=== PATIENT | female | born 1935 | race Caucasian/White ===

== ENCOUNTER → 2016-08-10 | Outpatient (CLI) | payer MEDICARE, BC ==
[2016-08-10 12:56] LABS: AUTOMATED NEUTROPHIL # 2.6 TH/MM3 (1.8-7.7); BASOPHIL % 0.7 % (0.0-2.0); EOSINOPHIL # 0.1 TH/MM3 (0-0.4); HEMATOCRIT 41.6 % (35.0-46.0); HEMO FLAGS DIFF FINAL; LYMPH % 39.7 % (9.0-44.0); LYMPHOCYTE # 2.2 TH/MM3 (1.0-4.8); MEAN CELL VOLUME 92.4 FL (80.0-100.0); MEAN CORPUSCULAR HEMOGLOBIN 30.6 PG (27.0-34.0); MEAN CORPUSCULAR HGB CONC 33.1 % (32.0-36.0); MONO % 12.4 % (0.0-8.0); NEUT % 46.2 % (16.0-70.0); PLATELET COUNT 186 TH/MM3 (150-450); RED BLOOD COUNT 4.51 MIL/MM3 (4.00-5.30); RED CELL DISTRIBUTION WIDTH 14.1 % (11.6-17.2); WHITE BLOOD COUNT 5.6 TH/MM3 (4.0-11.0)
[2016-08-10 13:42] LABS: ALKALINE PHOSPHATASE 147 U/L (45-117); ALT (GPT) 18 U/L (10-53); ANION GAP 9 MEQ/L (5-15); AST (GOT) 15 U/L (15-37); BICARBONATE 29.3 MEQ/L (21.0-32.0); BLOOD UREA NITROGEN 16 MG/DL (7-18); CHLORIDE 102 MEQ/L (98-107); GLOMERULAR FILTRATION RATE 53 ML/MIN (>89); GLUCOSE,FASTING 82 MG/DL (74-99); HDL CHOLESTEROL 60.3 MG/DL (40.0-60.0); LDL CHOLESTEROL 131 MG/DL (0-99); POTASSIUM 3.7 MEQ/L (3.5-5.1); SODIUM (NA) 140 MEQ/L (136-145); TOTAL BILIRUBIN ADULT 0.4 MG/DL (0.2-1.0)
== END ==
LOC: PLAB 08:15
PROVIDERS: ATTEND Family Medicine
DX: E03.9 Hypothyroidism, unspecified (principal); N18.3 Chronic kidney disease, stage 3 (moderate); E78.2 Mixed hyperlipidemia
CPT/HCPCS: 36415; 80053; 80061; 84443; 85025

== ENCOUNTER → 2017-02-08 | Outpatient (CLI) | payer MEDICARE, BC ==
[2017-02-08 13:38] LABS: AUTOMATED NEUTROPHIL # 2.4 TH/MM3 (1.8-7.7); BASOPHIL % 0.5 % (0.0-2.0); EOSINOPHIL # 0.1 TH/MM3 (0-0.4); EOSINOPHIL % 1.2 % (0.0-4.0); HEMATOCRIT 40.3 % (35.0-46.0); HEMO FLAGS DIFF FINAL; LYMPH % 38.3 % (9.0-44.0); LYMPHOCYTE # 1.9 TH/MM3 (1.0-4.8); MEAN CELL VOLUME 91.4 FL (80.0-100.0); MEAN CORPUSCULAR HEMOGLOBIN 30.9 PG (27.0-34.0); MEAN CORPUSCULAR HGB CONC 33.8 % (32.0-36.0); MONO % 11.9 % (0.0-8.0); NEUT % 48.1 % (16.0-70.0); PLATELET COUNT 165 TH/MM3 (150-450); RED BLOOD COUNT 4.41 MIL/MM3 (4.00-5.30); RED CELL DISTRIBUTION WIDTH 13.9 % (11.6-17.2)
[2017-02-08 14:11] LABS: ANION GAP 8 MEQ/L (5-15); AST (GOT) 15 U/L (15-37); BICARBONATE 28.8 MEQ/L (21.0-32.0); BLOOD UREA NITROGEN 15 MG/DL (7-18); CHLORIDE 102 MEQ/L (98-107); GLOMERULAR FILTRATION RATE 56 ML/MIN (>89); GLUCOSE,FASTING 89 MG/DL (74-99); POTASSIUM 3.8 MEQ/L (3.5-5.1); SODIUM (NA) 139 MEQ/L (136-145)
[2017-02-08 14:21] LABS: ALKALINE PHOSPHATASE 154 U/L (45-117); ALT (GPT) 19 U/L (10-53); HDL CHOLESTEROL 47.4 MG/DL (40.0-60.0); LDL CHOLESTEROL 134 MG/DL (0-99); TOTAL BILIRUBIN ADULT 0.3 MG/DL (0.2-1.0)
== END ==
LOC: PLAB 07:58
PROVIDERS: ATTEND Family Medicine
DX: E78.2 Mixed hyperlipidemia (principal); I10 Essential (primary) hypertension; K21.9 Gastro-esophageal reflux disease without esophagitis; E30.9 Disorder of puberty, unspecified
CPT/HCPCS: 36415; 80053; 80061; 84443; 85025

== ENCOUNTER → 2017-02-16 | Outpatient (CLI) | payer MEDICARE, BC | LOC: PLAB 09:33 | PROVIDERS: ATTEND Family Medicine | DX: M62.81 Muscle weakness (generalized) (principal); E03.9 Hypothyroidism, unspecified | CPT/HCPCS: 36415 ==

== ENCOUNTER → 2017-08-03 | Outpatient (CLI) | payer MEDICARE, BC ==
[2017-08-03 10:20] LABS: AUTOMATED NEUTROPHIL # 3.4 TH/MM3 (1.8-7.7); BASOPHIL % 0.5 % (0.0-2.0); EOSINOPHIL # 0.1 TH/MM3 (0-0.4); EOSINOPHIL % 1.2 % (0.0-4.0); HEMATOCRIT 40.8 % (35.0-46.0); HEMO FLAGS DIFF FINAL; HEMOGLOBIN 13.6 GM/DL (11.6-15.3); LYMPH % 31.6 % (9.0-44.0); LYMPHOCYTE # 1.9 TH/MM3 (1.0-4.8); MEAN CELL VOLUME 91.5 FL (80.0-100.0); MEAN CORPUSCULAR HEMOGLOBIN 30.4 PG (27.0-34.0); MEAN CORPUSCULAR HGB CONC 33.2 % (32.0-36.0); MONO % 10.7 % (0.0-8.0); MONOCYTE # 0.6 TH/MM3 (0-0.9); PLATELET COUNT 192 TH/MM3 (150-450); RED BLOOD COUNT 4.46 MIL/MM3 (4.00-5.30); RED CELL DISTRIBUTION WIDTH 13.6 % (11.6-17.2)
[2017-08-03 10:28] LABS: PROTHROMBIN TIME - PATIENT 10.6 SEC (9.8-11.6)
[2017-08-03 10:40] LABS: BILIRUBIN, URINE NEG (NEG); BLOOD, URINE NEG (NEG); COMMENT (UR) CATH-CULT NOT IND; CULTURE IF INDICATED CATH CULTURE NOT IND; GLUCOSE,URINE NEG (NEG); KETONE, URINE NEG (NEG); NITRITE,URINE NEG (NEG); SQUAMOUS EPITHELIAL CELL URINE <1 /hpf (0-5); URINE COLOR LIGHT-YELLOW (YELLW/STRAW); URINE LEUKOCYTE ESTERASE MOD (NEG)
[2017-08-03 10:52] LABS: ANION GAP 6 MEQ/L (5-15); BICARBONATE 29.5 MEQ/L (21.0-32.0); BLOOD UREA NITROGEN 14 MG/DL (7-18); CHLORIDE 101 MEQ/L (98-107); CREATININE 0.87 MG/DL (0.50-1.00); GLOMERULAR FILTRATION RATE 62 ML/MIN (>89); GLUCOSE,FASTING 77 MG/DL (74-99); POTASSIUM 3.8 MEQ/L (3.5-5.1); SODIUM (NA) 136 MEQ/L (136-145)
== END ==
LOC: CPRE 09:13
DX: Z01.810 Encounter for preprocedural cardiovascular examination (principal); Z01.812 Encounter for preprocedural laboratory examination; Z01.818 Encounter for other preprocedural examination; M19.012 Primary osteoarthritis, left shoulder
CPT/HCPCS: 36415; 71046; 80048; 81001; 85025; 85610; 93005

== ENCOUNTER 2017-08-15 07:41 | Inpatient (IN) | payer MEDICARE, BC ==
--- NOTE | 2017-08-07 17:55 | MH ---
cc: JESSICA COREA DATE OF ADMISSION 08/15/2017 ADMISSION DIAGNOSIS Osteoarthritis of the left shoulder, partial-thickness rotator cuff tear left shoulder, pain left shoulder. HISTORY OF THE PRESENT ILLNESS The patient is an 82-year-old white female who has experienced pain of her left shoulder of almost 4 years duration. 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 As he became progressively more incapacitated with progression of his disease the patient's responsibilities became more involved especially with lifting activities for which she suspects she may have stressed the shoulder area. She did not seek any evaluation or treatment during that interval of time and with her son having , she began to note progressive pain about the shoulder area for which she was having difficulty regarding her daily routine especially as related to any reaching in an overhead orientation. She had been taking Aleve on a p.r.n. basis for pain management. She presented to the undersigned physician in February of 2016 and at that time her x-ray studies revealed obvious degenerative changes of the glenohumeral joint with pronounced osteophyte versus loose body about the inferior margin of the humeral head. Findings and treatment options were reviewed with the patient at that time. Initially the patient was not desirous of considering any form of operative intervention and elected to continue with conservative management. She returned to the office in April of 2017 and at that time described lingering soreness about the shoulder area with limited mobility that had influenced all activities of daily living. She had received a previous injection to the shoulder area that did afford her some benefit and expressed her desire to receive similar treatment for which she did undergo a repeat injection for further management. Unfortunately her symptoms persisted and she became progressively more incapacitated with the passage of time. She subsequently underwent a CT scan with contrast of the left shoulder the results of which identified severe glenohumeral joint arthrosis with a diffuse full-thickness articular cartilage thinning, as well as a longitudinal partial-thickness articular surface tear of the distal infraspinatus tendon but no full-thickness rotator cuff tear being identified. There was severe subacromial, subdeltoid bursitis. The patient returned to the office in follow-up disposition and at that time her options were reviewed once again the pros and cons of continuing with conservative management versus operative intervention that would involve a reverse shoulder arthroplasty were outlined. Emphasis was made regarding the fact that the decision to proceed with surgery would be left entirely to the patient's discretion. The patient felt that her symptoms had progressed to that point in time where she was ready to proceed accordingly and in compliance with her wishes she was scheduled for admission in order that the above be accomplished. She is right-hand dominant. PAST MEDICAL HISTORY Her past medical history, hospitalizations and surgeries have included: 1. Tonsillectomy. 2. Appendectomy. 3. Repair of a prolapsed uterus. 4. Bladder repair with total abdominal hysterectomy. Arthroscopic surgery of the left knee. 5. Complete mastectomy of the left breast. 6. Cataract excision bilaterally. 7. And colonoscopy. 8. The patient has also been evaluated in the past for thyroid disease and was later diagnosed as having TMJ disorder. Her medical illnesses include: 1. Hypothyroidism. 2. Elevated cholesterol. 3. Hypertension. 4. Acid reflux. MEDICATIONS Her current medications: 1. Butisol sodium 30 milligrams daily. 2. Levothyroxine 75 mcg daily. 3. Simvastatin 20 mg daily. 4. Metoprolol 50 mg daily. 5. Losartan 100 mg daily. 6. Proventil inhaler 110 mcg 2 puffs twice a day. 7. Tagamet 150 mg twice daily. 8. Advil 200 mg four times a day. 9. Ocuvite Lutein once a day. 10. Vitamin B12 1000 mg daily. 11. Potassium 99 mg twice daily. 12. Magnesium 500 mg twice daily. ALLERGIES The patient denies any known drug allergies. REVIEW OF SYSTEMS She wears glasses. Has a history of headaches and occasional dizziness. No syncope. No sinus congestion or epistaxis. Auditory acuity intact. No tinnitus. No bleeding gums or dysphagia. Denies cough, shortness of breath, upper respiratory infection, pneumonia or tuberculosis. No angina. She is medically managed for hypertension. Her appetite is good. Bowel movements are regular. No hepatitis, gallbladder disease or ulcers. There is a positive history of hemorrhoids. She has had previous urinary tract infection. No kidney stones. No fractures. No psychiatric illness. Her remaining review of systems is unremarkable and noncontributory. FAMILY HISTORY The patient has been 61 years. Her is 84 years of age, he is in reasonably good health having undergone previous cardiac valve replacement. One son at 57 years of age secondary to lung cancer. One daughter in good health. Family history is positive for hypertension, heart disease, COPD, breast and lung cancer. SOCIAL HISTORY The patient completed a high school education with additional college credits. 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 Denies active use of tobacco and ethanol. PHYSICAL EXAMINATION Height 5 feet 4 inches, weight 151 pounds. GENERAL: An alert, oriented and responsive 82-year-old white female who sits quietly upon examination table with no obvious distress. HEENT: Head, ears, eyes, nose and throat, pupils were equally round and reactive to light. Extraocular movements full. Sclerae clear. External nares clear. External auditory canals clear. Dental intact with dental implant in place in the mandibular region for history of TMJ. Mucous membranes pink and moist. Pharynx clear. NECK: Supple. There is mild discomfort at the extremes of motion indicated to be chronic in nature. Carotid pulse palpable bilaterally. Trachea midline. Thyroid without enlargement. LUNGS: Clear to auscultation and percussion. No CVA tenderness. No discomfort throughout the dorsal lumbar spine. HEART: Regular rhythm. No murmur or gallop. ABDOMEN: Soft. Nontender. Bowel sounds present. PELVIC: Per primary care physician. EXTREMITIES: Left shoulder there is mild tenderness elicited about the anterior aspect of the left shoulder without palpable deformity. The patient demonstrates obvious difficulty and limitations in her attempt to actively elevate her left hand above her head level. Internal rotation is limited to the posterior waist level, abduction to no more than 30-45 degrees. Cross-arm positioning of left hand onto right shoulder is limited. Subtle suggestion for crepitation about the glenohumeral joint. Drop arm test minimally positive. Hagan sign positive. Mild weakness of both internal and external rotation. Fisher Spear strength intact. Sensory intact. NEUROLOGIC: Cranial nerves II-XII grossly intact. IMPRESSION Osteoarthritis left shoulder, partial-thickness rotator cuff tear left shoulder, pain left shoulder. PLAN Left reverse shoulder arthroplasty. The nature of the planned surgical procedure, the potential complications and risks associated, the expectations of surgery and the consent form were thoroughly reviewed with the patient in the presence of her prior to admission to the hospital. Camilla has indicated her full understanding regarding all of the above and given consent to proceed with treatment as outlined. Medical evaluation and clearance for surgery will be completed by her primary care physician Dr. Sosa Camilo. MD COLLEEN Austin/KK /4:49 PM /5:13 PM
[~2017-08-15] VITALS: Ht 162.6 cm; Wt 63.6 kg
[~2017-08-15 07:41] MED LIST: CIME200T23 PO; FLUTI110I INH; IBUP200C PO; LEVO75TA3 PO; LOSA100T PO; MAGN400T3 PO; METO1TAB9 PO; OCUVTAB PO; POTA99TA4 PO; SIMV20TA PO; VITA500T35 PO; [UNRECOGNIZED DRUG - CODE] PO
[2017-08-15] MEDS ORDERED: METOPROLOL TARTRATE 25 MG TAB PO PRN (08:30)
[2017-08-15] MEDS ORDERED: POVIDONE IODINE 7.5% SCRUB 118 ML BOTTLE TOPICAL SCH (08:30)
[2017-08-15] MEDS ORDERED: LACTATED RINGER'S 1000 ML IV PRN (08:30)
[2017-08-15] MEDS ORDERED: CHLORHEXIDINE GLUCONATE 2 % 1 PACK (2 CLOTHS) TOPICAL PRN (08:30)
[2017-08-15] MEDS ORDERED: SODIUM CHLORID 0.9% 500 ML IV PRN (08:30)
[2017-08-15] MEDS ORDERED: POVIDONE IODINE 5% (ANTISEPSIS KIT) 4 APPLICATIONS EACH NARE PRN (08:30)
[2017-08-15] MEDS ORDERED: ceFAZolin 2 GM PREMIX 50 ML IV SCH (08:30)
[2017-08-15] MEDS ORDERED: TRANEXAMIC ACID 1 GM PRIOR TO PROCEDURE IV SCH ×2 (09:00)
[2017-08-15] MEDS ORDERED: ceFAZolin INJ 1,000 MG VIAL ONE (10:28)
[2017-08-15] MEDS ORDERED: ACETAMINOPHEN 1000 MG/100 ML 100 ML IV ONE (10:34)
[2017-08-15] MEDS ORDERED: FAMOTIDINE 20 MG/2 ML VIAL ONE (10:35)
[2017-08-15] MEDS ORDERED: MIDAZOLAM HCL 2 MG/2 ML VIAL ONE (10:35)
[2017-08-15] MEDS ORDERED: TRANEXAMIC ACID 1 GM POST-OP IV SCH ×2 (12:00)
[2017-08-15] MEDS ORDERED: DO NOT ADM ANY ANTICOAGULANT DRUGS PRN (13:31)
[2017-08-15] MEDS ORDERED: *morphine SULFATE 4 MG/ML PERIprocedure ONLY ONE (13:41)
[2017-08-15] MEDS ORDERED: ACETAMINOPHEN/HYDROcodone 325 MG/5 MG TAB PO PRN (13:45)
[2017-08-15] MEDS ORDERED: MISCELLANEOUS PHARMACY INFORMATION XX ONE (13:45)
[2017-08-15] MEDS ORDERED: ONDANSETRON HCL 4 MG/2 ML VIAL IVP PRN (13:45)
[2017-08-15] MEDS ORDERED: NALOXONE HCL 0.4 MG/ML AMP IV PUSH PRN (13:45)
[2017-08-15] MEDS ORDERED: Post-op Orders (for Pharmacy) XX ONE (13:45)
[2017-08-15] MEDS ORDERED: TRANEXAMIC ACID INJ 1,000 MG in SODIUM CHLORIDE 0.9% INJ 100 ML IV SCH (13:45)
[2017-08-15] MEDS ORDERED: ACETAMINOPHEN 325 MG TAB PO PRN (13:45)
[2017-08-15] MEDS ORDERED: BISACODYL 10 MG SUPP RECTAL PRN (13:45)
[2017-08-15] MEDS ORDERED: ZOLPIDEM TARTRATE 5 MG TAB PO PRN (13:45)
[2017-08-15] MEDS ORDERED: BUPIVACAINE HCL PF 0.5% 30 ML VIAL ONE (13:53)
[2017-08-15] MEDS: DEXT 5%-NACL 0.45% 1000 ML INJ 1,000 ML IV SCH ×2 (14:30→23:23)
[2017-08-15] MEDS ORDERED: MORPHINE SULFATE 30 MG/30 ML PCA IV SCH (14:30)
[2017-08-15] MEDS: PCA - TOTAL MG MORPHINE DELIVERED PER SHIFT SCH ×2 (14:30→22:00)
[2017-08-15 16:00] VITALS: BP 142/82; PULSE 89; RESP 18; TEMP 96.6; O2SAT 97
--- NOTE | 2017-08-15 16:23 | RADRPT ---
EXAM DATE/TIME: 08/15/2017 15:53 [facility] COMPARISON: No previous studies available for comparison. INDICATIONS : Post op left shoulder surgery. MEDICAL HISTORY : None. SURGICAL HISTORY : None. ENCOUNTER: Initial ACUITY: 1 day PAIN SCORE: 0/10 LOCATION: Left Shoulder. FINDINGS: There is a shoulder prosthesis in place which appears to be well-seated. Air is noted postoperatively in the soft tissues. CONCLUSION: Shoulder prosthesis well seated Jasson Golden MD on August 15, 2017 at 16:20 Board Certified Radiologist. This report was verified electronically.
--- NOTE | 2017-08-15 17:23 | PD.CONS ---
[facility] Request[facility] By Dr. ramirez from orthopedics service Reason for Consult Medical management Primary Care Physician Sosa Camilo MD Diagnoses: History of Present Illness Patient is a very pleasant feisty 82-year-old female right handed who was been complaining of pain over the left shoulder for the past 2 years now on and off. In the past had received a steroid shots with help but lately has been increasing pain with limitation in range of motion which prompted this elective surgery. Patient states history of hypertension hyperlipidemia history of breast cancer. Hyper reactive airway disease. Patient currently seen postop in the room denies any pain very motivated and looking forward to the worst 2 more physical therapy. Review of Systems Constitutional: DENIES: Fever, Weight loss, Chills, Change in appetite Eyes: DENIES: Blurred vision, Double Vision Ears, nose, mouth, throat: DENIES: Tinnitus, Ear Pain, Epistaxis, Odynophagia Respiratory: DENIES: Cough, Hemoptysis, Sputum production, Shortness of breath Cardiovascular: DENIES: Chest pain, Palpitations, Dyspnea on Exertion, Lower Extremity Edema, Orthopnea Gastrointestinal: DENIES: Black stools, Bloody stools, Difficulty Swallowing, Anorexia Genitourinary: DENIES: Urgency, Hematuria, Vaginal discharge Musculoskeletal: DENIES: Joint pain, Stiffness Integumentary: DENIES: Pruritus Hematologic/lymphatic: DENIES: Bruising Immunologic/allergic: DENIES: Urticaria Neurologic: DENIES: Headache, Speech Problems, Tremor Psychiatric: DENIES: Suicidal Ideation, Homicidal Ideation Past Family Social History Allergies: Coded Allergies: No Known Allergies (Unverified , 08/03/17) Past Medical History Hypertension Hyperlipidemia Peptic ulcer disease Hypothyroidism History of breast cancer status post left radical mastectomy Past Surgical History Left radical mastectomy for breast cancer Knee surgery in 1983 History of bladder repair Reported Medications As outpatient Simvastatin Toprol Losartan Potassium Flovent Magnesium Tagamet Synthroid Multivitamins Active Ordered Medications See EMR Family History Noncontributory Social History Denies smoking or alcohol use Physical Exam Vital Signs Vital Signs Date Time Temp Pulse Resp B/P (MAP) Pulse Ox O2 Delivery O2 Flow Rate FiO2 08/15/17 16:07 Nasal Cannula 2.00 08/15/17 15:00 97.8 78 18 169/92 (117) 96 Nasal Cannula 2 08/15/17 14:58 17 08/15/17 14:45 79 18 162/86 (111) 96 Nasal Cannula 2 08/15/17 14:30 84 18 158/99 (118) 96 Nasal Cannula 2 08/15/17 14:15 81 16 165/79 (107) 96 Nasal Cannula 2 08/15/17 14:00 77 16 184/90 (121) 96 Nasal Cannula 2 08/15/17 13:45 70 16 158/78 (104) 95 Nasal Cannula 3 08/15/17 13:35 97.6 72 16 172/80 (110) 95 Nasal Cannula 3 08/15/17 08:28 98.3 88 18 172/90 (117) 96 Physical Exam GENERAL: This is a well-nourished, well-developed patient, in no apparent distress. Awake alert not in distress very feisty and interactive SKIN: No rashes, ecchymoses or lesions. Cool and dry. HEAD: Atraumatic. Normocephalic. No temporal or scalp tenderness. EYES: Pupils equal round and reactive. Extraocular motions intact. No scleral icterus. No injection or drainage. ENT: Nose without bleeding, purulent drainage or septal hematoma. Throat without erythema, tonsillar hypertrophy or exudate. Uvula midline. Airway patent. NECK: Trachea midline. Supple, nontender, no meningeal signs. CARDIOVASCULAR: Regular rate and rhythm without murmurs, gallops, or rubs. RESPIRATORY: Clear to auscultation. Breath sounds equal bilaterally. No wheezes , rales, or rhonchi. GASTROINTESTINAL: Abdomen soft, non-tender, No guarding. MUSCULOSKELETAL: Left shoulder with postop dressing in place good radial pulses NEUROLOGICAL: Awake and alert. Cranial nerves II through XII intact. Motor and sensory grossly within normal limits. Five out of 5 muscle strength in all muscle groups. Normal speech. Imaging Last Impressions Shoulder X-Ray 08/15/17 0000 Signed Impressions: Service Date/Time: Tuesday, August 15, 2017 15:53 - CONCLUSION: Shoulder prosthesis well seated Jasson Golden MD Assessment and Plan Assessment and Plan 82-year-old female Status post left shoulder arthroplasty Orthopedic service is following PT consult. When necessary pain meds History of hypertension continue on metoprolol and losartan History of hyperlipidemia. Simvastatin History of cyst hyperreactive airway disease continue on Flovent History of GERD. Continue on Tagamet twice a day- not available- change to zantac 150 bid History of hypothyroidism continue on Synthroid Encourage up in ambulation. Patient started on Xarelto. For DVT prophylaxis Thank you for this consult we'll follow patient in-house with you Velvet Miller MD Aug 15, 2017 17:23
[2017-08-15] MEDS ORDERED: [UNRECOGNIZED DRUG - OTHER] PO PRN (18:00)
[2017-08-15 20:05] VITALS: BP 138/98; PULSE 93; RESP 18; TEMP 96; O2SAT 97
[2017-08-15] MEDS: PRAVASTATIN SOD 40 MG TAB PO SCH (21:07)
[2017-08-15] MEDS: FLUTICASONE PROPIONATE 110 MCG/ACT 12 GM INHALER INH SCH (21:07)
[2017-08-16 00:05] VITALS: BP 136/77; PULSE 102; RESP 17; TEMP 98; O2SAT 97
[2017-08-16 04:05] VITALS: BP 133/68; PULSE 95; RESP 17; TEMP 98; O2SAT 98
[2017-08-16] MEDS: LEVOTHYROXINE SODIUM 75 MCG TAB PO SCH (05:44)
[2017-08-16] MEDS: PCA - TOTAL MG MORPHINE DELIVERED PER SHIFT SCH ×3 (05:44→22:00)
[2017-08-16] MEDS: DEXT 5%-NACL 0.45% 1000 ML INJ 1,000 ML IV SCH ×3 (06:00→22:00)
[2017-08-16] MEDS ORDERED: HYDR-3516 PO (06:22)
[2017-08-16] MEDS ORDERED: ASPI-183 PO (06:22)
--- NOTE | 2017-08-16 06:26 | HHI.FF ---
Face to Face Verification Diagnosis: (1) DJD of left shoulder Occupational Therapy Left UE Weight Bearing: WB as tolerated Left UE Range of Motion: Active ROM Additional Instructions no external rotation > 45 degrees for initial 6 weeks post-op then progress as tolerated; follow standard TSA protocol Nursing Dressing Changes: Daily dressing change I have seen patient Camilla Cheema on 08/16/17. My clinical findings support the need for the requested home health care services because: Limited ability to care for self High risk of falls I certify that my clinical findings support that this patient is homebound because: Post-op weakness Unsteady gait/balance Unsafe to leave home unassisted Sam Garzon MD Aug 16, 2017 06:26
[2017-08-16] MEDS: FAMOTIDINE 20 MG TAB PO SCH ×2 (06:36→18:17)
[2017-08-16 07:39] LABS: HEMATOCRIT 33.6 % (35.0-46.0); HEMOGLOBIN 11.4 GM/DL (11.6-15.3)
[2017-08-16 08:00] VITALS: BP 140/71; PULSE 87; RESP 17; TEMP 98.7; O2SAT 95
[2017-08-16] MEDS ORDERED: FAMOTIDINE 20 MG TAB PO SCH (09:00)
[2017-08-16] MEDS ORDERED: POTASSIUM PO SCH (09:00)
[2017-08-16] MEDS: CYANOCOBALAMIN 1,000 MCG TAB PO SCH (09:26)
[2017-08-16] MEDS: METOPROLOL SUCCINATE 50 MG EXTENDED RELEASE TAB PO SCH (09:26)
[2017-08-16] MEDS: LOSARTAN 50 MG TAB PO SCH (09:26)
[2017-08-16] MEDS: MULTIVITAMIN-OPHTHALMIC 1 TAB PO SCH (09:26)
[2017-08-16] MEDS: FLUTICASONE PROPIONATE 110 MCG/ACT 12 GM INHALER INH SCH ×2 (09:27→20:11)
[2017-08-16] MEDS: MAGNESIUM OXIDE 400 MG TAB PO SCH (09:27)
--- NOTE | 2017-08-16 10:34 | MP ---
cc: JESSICA GARZON DATE OF SURGERY 08/15/2017 PREOPERATIVE DIAGNOSIS Severe osteoarthritis of the left shoulder with partial thickness rotator cuff tear and pain of the left shoulder POSTOPERATIVE DIAGNOSIS Severe osteoarthritis of the left shoulder with partial thickness rotator cuff tear and pain of the left shoulder PROCEDURE Left reversed shoulder arthroplasty. SURGEON Jessica Garzon MD ANESTHESIA General endotracheal INDICATIONS This is an 82-year-old white female with left shoulder pain of almost four years duration. 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 As he became progressively more incapacitated with his disease, the patient's responsibilities became more involved especially with lifting activities for which she suspects she may have stressed her shoulder area. She did not seek any evaluation or treatment during that interval of time until her son had where after she began to note progressive pain about her shoulder area and having difficulty conforming to her daily routine especially as related to any reaching in an overhead orientation. She had been taking Aleve on a p.r.n. basis for pain management. She presented to the undersigned physician in February of this past year and at that time her x-ray studies revealed obvious degenerative changes of the glenohumeral joint with pronounced osteophyte versus loose body about the inferior margin of the humeral head. Findings and treatment options were reviewed at that time. Initially, the patient was not desirous of considering any form of operative intervention and elected to continue with conservative management. She returned to the office in the more recent past and at that time indicated lingering discomfort about her shoulder with limited mobility that was influencing all activities of daily living. She had received a previous injection to her shoulder that afforded her very limited relief, but she did expressed her desire to proceed with similar treatment in the hope that it might be able to afford her further improvement. Unfortunately, her systems persisted thereafter and she later underwent a CT scan with contrast of the left shoulder the results of which identified severe glenohumeral joint arthrosis with diffuse full-thickness articular cartilage thinning and a longitudinal partial-thickness articular surface tear of the distal infraspinatus tendon, but no full-thickness rotator cuff tear being identified. There was severe subacromial/subdeltoid bursitis. The patient returned to the office at which time the findings of the scan were reviewed and treatment options discussed. The pros and cons of continuing with conservative management versus operative intervention involving a reverse shoulder arthroplasty were outlined. Emphasis was made regarding the fact that the decision to proceed with surgery would be left entirely to the patient's discretion. The patient felt that her symptoms had progressed to that point in time where she was ready to proceed accordingly and in compliance with her wishes, she was scheduled for admission at this time in order that the above be accomplished. FORMAT Following the induction of satisfactory general anesthesia by endotracheal intubation as completed per the Department of Anesthesia, the patient was positioned upon the operating table in a modified beach-chair configuration. The left shoulder and upper extremity proper were isolated with a U-drape thereafter being prepped with Betadine solution and draped into a sterile field in the routine manner. Prior to initiation of the actual procedure, the standard time-out protocol was completed. All parameters were appropriately addressed and confirmed by operating room personnel. A standard anterior approach to the shoulder was initiated through a sharp skin incision and developed through underlying subcutaneous tissue with hemostasis maintained by electrocautery. By deepening dissection, the deltopectoral interval was identified, the cephalic vein exposed distally and the interval development in a distal to proximal orientation with the vein being retracted laterally with a cuff of deltoid musculature. Digital release of subdeltoid adhesions were accomplished and with the shoulder maintained in a slightly externally rotated orientation, the three sister circumflex vessels were identified and ligated with a silk ligature. The biceps tendon was thereafter developed within the bicipital groove. A limited release of the pectoralis insertion was accomplished and the tendon divided proximally and the more distal segment of the tendon was thereafter tenodesed to the stump of the pectoralis tendon. The excess portion of the biceps tendon was resected. With the shoulder maintained in an externally rotated orientation, the subscapularis tendon was divided in a superior to inferior orientation along the margins of the anatomical neck of the humerus facilitating delivery of the humeral head into the wound. Examination revealed severe degenerative changes with complete erosion of articular cartilage. An entry point was placed superiorly along the bicipital groove facilitating entry into the humeral shaft. Sequential rasping was accomplished from 7-13 mm. With the 13-mm rasp in place, the external guide was positioned and the humeral head resected in approximately 30 degrees of retroversion. Thereafter, sequential broaching was accomplished through 12 mm with the 12 mm stem determined to be a stable fit. With the trial broach in place, the covering cap was placed and attention was redirected to the glenoid. Retractors were placed posteriorly inferior, anteriorly and superiorly. The excess stump of the biceps tendon was resected as was the glenoid labrum and a section of the superior, middle, and inferior glenohumeral ligaments. The glenoid was thereafter exposed in a 360 degrees orientation. Hash weiss were placed in the 12-6 o'clock position and the 3-9 o'clock position facilitating orientation of the central portion of the glenoid. Using the 10 mm inferior tilt guide, a guide pin was placed centrally and thereafter the step-down reamer was passed creating a central peg hole. A 25 mm glenosphere mini baseplate was thereafter firmly seated. A 20 mm central screw was placed. Peripheral locking screws included 25 mm screws superiorly and inferiorly and 15 mm screws anteriorly and posteriorly. With the baseplate firmly seated, a 36 mm glenosphere with maximum inferior offset was firmly attached to the baseplate. Attention returned to the proximal humerus. A trial reduction was completed utilizing a 36 x 44-mm humeral bearing component. The shoulder was reduced and carried through a passive range of motion with stability demonstrated throughout the arc of mobility. An open dislocation was completed and the trial humeral components being removed, the wound was thoroughly irrigated with antibiotic saline solution. Thereafter, a 12 mm mini humeral stem was firmly seated to which a 44-mm humeral tray with locking ring and 44 x 36-mm humeral bearing insert attached to the humeral stem, the shoulder was again reduced and carried through a passive range of motion with stability again demonstrated throughout the arc of mobility. Previously inserted #1 Tycron sutures into the subscapularis tendon, as well as additional Tycron sutures passed through the greater tuberosity were thereafter utilized in repairing the subscapularis tendon. The remaining portion of the wound was closed in layers in the routine manner skin margins being reapproximated with a running subcuticular 3-0 Vicryl suture over which Steri-Strips were applied. Xeroform gauze and a bulky dry sterile dressing were placed. The extremity being supported in an arm sling, anesthesia was discontinued. The patient thus transferred to a hospital bed and returned to the recovery room in satisfactory condition having tolerated her operative procedure well. Estimated blood loss was approximately 100 cc as determined per anesthesia. All implants were of the [employer] before school babysitter. MD COLLEEN Austin/STACEY /1:30 PM /10:21 AM
[2017-08-16 12:00] VITALS: BP 128/65; PULSE 85; RESP 17; TEMP 99.6; O2SAT 93
[2017-08-16] MEDS: RIVAROXABAN 10 MG TAB PO SCH (13:22)
[2017-08-16 16:00] VITALS: BP 168/79; PULSE 85; RESP 17; TEMP 99.5; O2SAT 94
[2017-08-16] MEDS: ACETAMINOPHEN/HYDROcodone 325 MG/5 MG TAB PO PRN ×3 (16:08→23:57)
--- NOTE | 2017-08-16 20:00 | HHI.PR ---
Subjective Remarks 82F doing well post op, ambulatory and balanced. Still on Morphine pump, tired from narcotics. Objective Vitals Vital Signs Date Time Temp Pulse Resp B/P (MAP) Pulse Ox O2 Delivery O2 Flow Rate FiO2 08/16/17 17:08 16 08/16/17 16:00 99.5 85 17 168/79 (108) 94 08/16/17 13:24 16 08/16/17 12:00 99.6 85 17 128/65 (86) 93 08/16/17 08:00 98.7 87 17 140/71 (94) 95 08/16/17 05:44 2 08/16/17 04:05 98.0 95 17 133/68 (89) 98 08/16/17 00:05 98.0 102 17 136/77 (96) 97 08/15/17 22:00 17 08/15/17 21:30 Nasal Cannula 2.00 08/15/17 20:05 96.0 93 18 138/98 (111) 97 I/O 08/15/17 08/15/17 08/15/17 08/16/17 08/16/17 08/16/17 07:00 15:00 23:00 07:00 15:00 23:00 Intake Total 1300 ml 480 ml 903 ml 480 ml Output Total 500 ml Balance 800 ml 480 ml 903 ml 480 ml Intake Oral 480 ml 240 ml 480 ml IV Total 1300 ml 663 ml Output Urine Total 400 ml Estimated Blood Loss 100 ml # Voids 2 2 5 # Bowel Movements 0 0 0 Result Diagram: 08/16/17 0648 Objective Remarks GENERAL: Well-nourished, well-developed patient. SKIN: Warm and dry. HEAD: Normocephalic. EYES: No scleral icterus. No injection or drainage. NECK: Supple, trachea midline. No JVD or lymphadenopathy. CARDIOVASCULAR: Regular rate and rhythm without murmurs, gallops, or rubs. RESPIRATORY: Breath sounds equal bilaterally. No accessory muscle use. GASTROINTESTINAL: Abdomen soft, non-tender, nondistended. EXTREMITIES: left shoulder surgical site under bandage, left arm in sling NEUROLOGICAL: Awake, alert, and oriented x 3. Non-focal. 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
[2017-08-16] MEDS: PRAVASTATIN SOD 40 MG TAB PO SCH (20:10)
[2017-08-16 20:26] VITALS: BP 149/75; PULSE 80; RESP 18; TEMP 99.7; O2SAT 94
[2017-08-16 22:13] LABS: AUTOMATED NEUTROPHIL # 8.4 TH/MM3 (1.8-7.7); BASOPHIL % 0.2 % (0.0-2.0); EOSINOPHIL % 0.1 % (0.0-4.0); HEMATOCRIT 33.2 % (35.0-46.0); LYMPH % 14.4 % (9.0-44.0); LYMPHOCYTE # 1.6 TH/MM3 (1.0-4.8); MEAN CELL VOLUME 89.3 FL (80.0-100.0); MEAN CORPUSCULAR HEMOGLOBIN 29.5 PG (27.0-34.0); MEAN CORPUSCULAR HGB CONC 33.1 % (32.0-36.0); MEAN PLATELET VOLUME 7.3 FL (7.0-11.0); MONO % 10.6 % (0.0-8.0); MONOCYTE # 1.2 TH/MM3 (0-0.9); NEUT % 74.7 % (16.0-70.0); PLATELET COUNT 187 TH/MM3 (150-450); RED BLOOD COUNT 3.72 MIL/MM3 (4.00-5.30); RED CELL DISTRIBUTION WIDTH 13.6 % (11.6-17.2); WHITE BLOOD COUNT 11.2 TH/MM3 (4.0-11.0)
[2017-08-16 22:22] LABS: BICARBONATE 27.4 MEQ/L (21.0-32.0); CALCIUM 8.1 MG/DL (8.5-10.1); CREATININE 0.81 MG/DL (0.50-1.00)
[2017-08-17 01:07] VITALS: BP 164/80; PULSE 79; RESP 18; TEMP 98.7; O2SAT 94
[2017-08-17] MEDS: ACETAMINOPHEN/HYDROcodone 325 MG/5 MG TAB PO PRN ×2 (04:35→08:03)
[2017-08-17 04:59] VITALS: BP 160/76; PULSE 83; RESP 18; TEMP 98.5; O2SAT 94
[2017-08-17] MEDS: PCA - TOTAL MG MORPHINE DELIVERED PER SHIFT SCH (06:00)
[2017-08-17] MEDS: DEXT 5%-NACL 0.45% 1000 ML INJ 1,000 ML IV SCH (06:00)
[2017-08-17] MEDS: FAMOTIDINE 20 MG TAB PO SCH (06:08)
[2017-08-17] MEDS: LEVOTHYROXINE SODIUM 75 MCG TAB PO SCH (06:08)
--- NOTE | 2017-08-17 07:29 | PD.ORT.PN ---
Subjective Post Op Day #: 2 Subjective Remarks She is doing well. She has minimal complaints related to her shoulder at this time. She anticipates going home with home health care today. Distance Walked 120 feet with physical therapy Objective Vitals Vital Signs Date Time Temp Pulse Resp B/P (MAP) Pulse Ox O2 Delivery O2 Flow Rate FiO2 08/17/17 04:59 98.5 83 18 160/76 (104) 94 08/17/17 01:07 98.7 79 18 164/80 (108) 94 08/16/17 22:00 18 08/16/17 20:26 99.7 80 18 149/75 (99) 94 08/16/17 17:08 16 08/16/17 16:00 99.5 85 17 168/79 (108) 94 08/16/17 13:24 16 08/16/17 12:00 99.6 85 17 128/65 (86) 93 08/16/17 08:00 98.7 87 17 140/71 (94) 95 I/O 08/16/17 08/16/17 08/16/17 08/17/17 08/17/17 08/17/17 07:00 15:00 23:00 07:00 15:00 23:00 Intake Total 1003 ml 480 ml Balance 1003 ml 480 ml Intake Oral 240 ml 480 ml IV Total 763 ml # Voids 2 5 1 # Bowel Movements 0 0 1 Result Diagram: 08/16/17214808/16/172148 Imaging Last 72 hours Impressions Shoulder X-Ray 08/15/17 0000 Signed Impressions: Service Date/Time: Tuesday, August 15, 2017 15:53 - CONCLUSION: Shoulder prosthesis well seated Jasson Golden MD Objective Remarks She is resting comfortably, supine in bed. The dressing is dry and intact. Her neurovascular status is intact. She is able to move the shoulder and arm within the limits set by Dr. Garzon fairly comfortably at this time. Assessment & Plan Ortho Post Op Day #: 2 Problem List: (1) Status post total replacement of left shoulder ICD Codes: Z96.612 - Presence of left artificial shoulder joint Plan: Continue postop care and physical therapy. Assessment and Plan Condition: Good. Orthopedically stable. Discharge plans: Home with home health care. Further follow-up is according to the plans of Sam Garzon M.D. Crista Sosa MD (Charles) Aug 17, 2017 07:29
[2017-08-17 08:00] VITALS: BP 137/75; PULSE 85; RESP 18; TEMP 98.6; O2SAT 95
[2017-08-17] MEDS: MULTIVITAMIN-OPHTHALMIC 1 TAB PO SCH (08:01)
[2017-08-17] MEDS: LOSARTAN 50 MG TAB PO SCH (08:01)
[2017-08-17] MEDS: MAGNESIUM OXIDE 400 MG TAB PO SCH (08:02)
[2017-08-17] MEDS: CYANOCOBALAMIN 1,000 MCG TAB PO SCH (08:02)
[2017-08-17] MEDS: METOPROLOL SUCCINATE 50 MG EXTENDED RELEASE TAB PO SCH (08:02)
[2017-08-17] MEDS: FLUTICASONE PROPIONATE 110 MCG/ACT 12 GM INHALER INH SCH (08:03)
[2017-08-17] MEDS: RIVAROXABAN 10 MG TAB PO SCH (10:43)
== END 2017-08-17 12:04 | disposition home health service (06) | DRG 483 ==
LOC: HSDI 07:41 → N06B 15:33
PROVIDERS: ADMIT Orthopaedic Surgery; ATTEND Orthopaedic Surgery
PROC: 0RRK00Z Replacement of Left Shoulder Joint with Reverse Ball and Socket Synthetic Substitute, Open Approach (ICD-10-PCS; principal; 2017-08-15 10:51)
DX: M19.012 Primary osteoarthritis, left shoulder (principal); I10 Essential (primary) hypertension; E03.9 Hypothyroidism, unspecified; M75.112 Incomplete rotator cuff tear or rupture of left shoulder, not specified as traumatic; E78.00 Pure hypercholesterolemia, unspecified; K21.9 Gastro-esophageal reflux disease without esophagitis; Z85.3 Personal history of malignant neoplasm of breast; J45.909 Unspecified asthma, uncomplicated
CPT/HCPCS: 73020; 80048; 85014; 85018; 85025; 88305; 88311; 94150; C1776; J0131; J0690; J2250; J2270; J3010; J7120

== ENCOUNTER → 2017-08-25 | Outpatient (CLI) | payer MEDICARE, BC ==
[~2017-08-25] MED LIST changes: +ASPI-183 PO; -CIME200T23 PO; +HYDR-3516 PO; -IBUP200C PO
[2017-08-25 11:06] LABS: ALKALINE PHOSPHATASE 164 U/L (45-117); HDL CHOLESTEROL 38.8 MG/DL (40.0-60.0); TOTAL BILIRUBIN ADULT 0.3 MG/DL (0.2-1.0); TOTAL PROTEIN 6.5 GM/DL (6.4-8.2)
[2017-08-25 11:11] LABS: ALBUMIN 2.7 GM/DL (3.4-5.0); ALT (GPT) 35 U/L (10-53); AST (GOT) 25 U/L (15-37); BLOOD UREA NITROGEN 11 MG/DL (7-18); CALCIUM 8.6 MG/DL (8.5-10.1); CHLORIDE 102 MEQ/L (98-107); CHOLESTEROL 152 MG/DL (120-200); CHOLESTEROL/ HDL RATIO 3.91 RATIO; CREATININE 0.75 MG/DL (0.50-1.00); GLOMERULAR FILTRATION RATE 74 ML/MIN (>89); GLUCOSE,FASTING 93 MG/DL (74-99); LDL CHOLESTEROL 92 MG/DL (0-99); SODIUM (NA) 138 MEQ/L (136-145); TRIGLYCERIDES 108 MG/DL (42-150)
== END ==
LOC: PLAB 08:53
PROVIDERS: ATTEND Family Medicine
DX: I10 Essential (primary) hypertension (principal); E78.2 Mixed hyperlipidemia; E03.9 Hypothyroidism, unspecified; M62.81 Muscle weakness (generalized); M46.96 Unspecified inflammatory spondylopathy, lumbar region
CPT/HCPCS: 36415; 80053; 80061; 84443